=== PATIENT | female | born 1995 | race Caucasian/White ===

== ENCOUNTER 2022-01-03 17:46 | Inpatient (IN) | payer BC ==
[2022-01-03] MEDS ORDERED: Calcium Carbonate 500 MG Tab.Chew PO PRN (18:49)
[2022-01-03] MEDS ORDERED: Ondansetron 4 MG/2 ML SDV IVPUSH PRN (18:49)
[2022-01-03] MEDS ORDERED: Acetaminophen 325 MG Tab PO PRN (18:49)
[2022-01-03] MEDS ORDERED: Nalbuphine HCl 10 MG/ 1ML Amp IVPUSH PRN (18:49)
[2022-01-03] MEDS ORDERED: Lidocaine 1% 50 ML MDV INJECT PRN (18:49)
[2022-01-03] MEDS ORDERED: Oxytocin/Lactated Ringers 10 UNIT/1,000 ML BAG IV SCH ×2 (19:00)
[2022-01-03] MEDS ORDERED: Lactated Ringers 1,000 ML IV SCH (19:00)
[2022-01-03] MEDS ORDERED: Ampicillin 2 GM in Sodium Chloride 0.9% 100 ML IV ONE (20:30)
[2022-01-04] MEDS ORDERED: Ampicillin 1 GM in Sodium Chloride 0.9% 100 ML IV SCH (00:30)
[2022-01-04] MEDS ORDERED: Benzocaine/Menthol 20%-0.5% Spray 78 GM Cannister TOP PRN (01:21)
[2022-01-04] MEDS ORDERED: Witch Hazel Medicated Pads 40/Jar TOP PRN (01:21)
[2022-01-04] MEDS: Ibuprofen 600 MG Tab PO PRN ×2 (11:04→17:20)
[2022-01-04] MEDS: Docusate Sodium 100 MG Cap PO PRN (11:05)
[2022-01-04] MEDS: Acetaminophen 325 MG Tab PO PRN ×2 (11:05→17:21)
[2022-01-05] MEDS: Acetaminophen 325 MG Tab PO PRN ×4 (00:56→21:38)
[2022-01-05] MEDS: Ibuprofen 600 MG Tab PO PRN ×4 (00:57→21:36)
[2022-01-05] MEDS: Docusate Sodium 100 MG Cap PO PRN ×2 (08:18→21:36)
[2022-01-06] MEDS: Ibuprofen 600 MG Tab PO PRN ×2 (03:55→10:00)
[2022-01-06] MEDS: Acetaminophen 325 MG Tab PO PRN ×2 (03:55→08:40)
[2022-01-06] MEDS: Docusate Sodium 100 MG Cap PO PRN (08:40)
== END 2022-01-06 11:15 | disposition home or self-care (01) | DRG 560 ==
LOC: JD.OB 17:46 → JD.OBCHECK 17:46 → JD.MS 17:50 → JD.OBCHECK 18:49 → JD.OB 18:50 → OBSVTOIN 01-04 00:18 → JD.OB 01-04 00:19
PROVIDERS: ADMIT Obstetrics & Gynecology; ATTEND Obstetrics & Gynecology
PROC: 10E0XZZ Delivery of Products of Conception, External Approach (ICD-10-PCS; principal; 2022-01-04)
PROC: 10907ZC Drainage of Amniotic Fluid, Therapeutic from Products of Conception, Via Natural or Artificial Opening (ICD-10-PCS; 2022-01-04)
DX: O42.92 Full-term premature rupture of membranes, unspecified as to length of time between rupture and onset of labor (principal); Z37.0 Single live birth; O98.32 Other infections with a predominantly sexual mode of transmission complicating childbirth; A60.09 Herpesviral infection of other urogenital tract; O99.824 Streptococcus B carrier state complicating childbirth; Z3A.40 40 weeks gestation of pregnancy
CPT/HCPCS: 36415; 59025; 59409; 84112; 85027; 86592; 86850; 86900; 86901; A9270-GY; J0290; J2300; J2405; J2590; J7120

== ENCOUNTER 2023-09-07 13:02 | Inpatient (IN) | payer BC ==
[2023-09-07] MEDS ORDERED: Lidocaine 1% 50 ML MDV INJECT PRN (13:21)
[2023-09-07] MEDS ORDERED: Nalbuphine 10 MG/ML Syringe IVPUSH PRN (13:21)
[2023-09-07] MEDS ORDERED: Sodium Chloride 0.9% 10 ML Syringe FLUSH PRN (13:21)
[2023-09-07] MEDS ORDERED: Lactated Ringers 1,000 ML IV SCH (13:30)
[2023-09-07] MEDS: Oxytocin/Lactated Ringers 30 UNIT/500 ML BAG IV SCH (14:14)
[2023-09-07] MEDS ORDERED: Acetaminophen 325 MG Tab PO PRN (15:22)
[2023-09-07] MEDS: Witch Hazel Medicated Pads 40/Jar TOP PRN (15:52)
[2023-09-07] MEDS: Ibuprofen 600 MG Tab PO PRN (15:52)
[2023-09-07] MEDS: Benzocaine/Menthol 20%-0.5% Spray 78 GM Cannister TOP PRN (15:52)
[2023-09-07 17:28] LABS: BASOPHILS PERCENT AUTO 0.1 % (0.0-1.0); EOSINOPHILS PERCENT AUTO 0.1 % (0.0-6.0); HEMATOCRIT 36.5 % (37.0-47.0); HEMOGLOBIN 12.4 gm/dl (12.0-16.0); IMMATURE GRAN ABSOLUTE AUTO 0.09 K/mm3 (0.00-0.05); IMMATURE GRAN PERCENT AUTO 0.5 % (0.0-0.4); LYMPHOCYTES PERCENT AUTO 11.7 % (24.0-44.0); MEAN CORPUSCULAR HEMOGLOBIN 28.5 pg (28.0-32.0); MEAN CORPUSCULAR VOLUME 83.9 fl (83.0-99.0); MEAN PLATELET VOLUME 9.1 fl (9.4-12.3); MONOCYTES ABSOLUTE AUTO 1.1 K/mm3 (0.0-0.8); MONOCYTES PERCENT AUTO 6.5 % (0.0-8.0); NEUTROPHILS ABSOLUTE AUTO 13.8 K/mm3 (1.8-7.7); NEUTROPHILS PERCENT AUTO 81.1 % (41.0-71.0); PLATELET COUNT,PLT 337 K/mm3 (150-400); RED BLOOD CELL COUNT 4.35 M/mm3 (4.10-5.30); WHITE BLOOD CELL COUNT,WBC 17.01 K/mm3 (3.9-11.3)
[2023-09-07] MEDS ORDERED: Sodium Chloride 0.9% 10 ML Syringe FLUSH SCH (21:00)
[2023-09-07] MEDS: Docusate Sodium 100 MG Cap PO PRN (21:23)
[2023-09-09] MEDS: Measles, Mumps & Rubella Vaccine 0.5 ML SDV SUBCUT ONE (08:58)
== END 2023-09-09 13:50 | disposition home or self-care (01) | DRG 560 ==
LOC: JD.OBCHECK 13:02 → JD.OB 13:21 → JD.OBCHECK 13:26 → OBSVTOIN 13:34 → JD.OB 13:35
PROVIDERS: ADMIT Obstetrics & Gynecology; ATTEND Obstetrics & Gynecology
PROC: 10E0XZZ Delivery of Products of Conception, External Approach (ICD-10-PCS; principal; 2023-09-07)
PROC: 3E0234Z Introduction of Serum, Toxoid and Vaccine into Muscle, Percutaneous Approach (ICD-10-PCS; 2023-09-07)
DX: O99.824 Streptococcus B carrier state complicating childbirth (principal); Z37.0 Single live birth; Z3A.38 38 weeks gestation of pregnancy; Z98.890 Other specified postprocedural states; Z28.39 Other underimmunization status; Z23 Encounter for immunization
CPT/HCPCS: 36415; 59025; 59409; 85025; 86592; 90471; 90707; A9270-GY; J7999

== ENCOUNTER 2025-01-11 22:03 | Inpatient (IN) | payer BC ==
[2025-01-11] MEDS ORDERED: Ondansetron 4 MG/2 ML SDV IVPUSH PRN (22:57)
[2025-01-11] MEDS ORDERED: Nalbuphine 10 MG/1 ML Vial IVPUSH PRN (22:57)
[2025-01-11] MEDS ORDERED: Oxytocin/0.9 % Sodium Chloride 30 UNIT/500 ML BAG IV SCH (23:00)
[2025-01-11 23:14] LABS: BASOPHILS ABSOLUTE AUTO 0.0 K/mm3 (0.0-0.2); BASOPHILS PERCENT AUTO 0.3 % (0.0-1.0); EOSINOPHILS ABSOLUTE AUTO 0.0 K/mm3 (0.0-0.4); EOSINOPHILS PERCENT AUTO 0.3 % (0.0-6.0); IMMATURE GRAN ABSOLUTE AUTO 0.11 K/mm3 (0.00-0.05); IMMATURE GRAN PERCENT AUTO 0.8 % (0.0-0.4); LYMPHOCYTES ABSOLUTE AUTO 2.6 K/mm3 (1.0-4.8); LYMPHOCYTES PERCENT AUTO 19.8 % (24.0-44.0); MEAN PLATELET VOLUME 9.2 fl (9.4-12.3); MONOCYTES ABSOLUTE AUTO 0.8 K/mm3 (0.0-0.8); MONOCYTES PERCENT AUTO 5.9 % (0.0-8.0); NEUTROPHILS ABSOLUTE AUTO 9.7 K/mm3 (1.8-7.7); NEUTROPHILS PERCENT AUTO 72.9 % (41.0-71.0); NRBC ABSOLUTE 0.00 (0.00-0.02); NRBC PERCENT 0.0 % (0.0-0.2); PLATELET COUNT,PLT 331 K/mm3 (150-400); RED BLOOD CELL COUNT 4.31 M/mm3 (4.10-5.30); WHITE BLOOD CELL COUNT,WBC 13.31 K/mm3 (3.9-11.3)
[2025-01-11] MEDS: Lactated Ringers 1,000 ML IV SCH (23:29)
[2025-01-12] MEDS: Oxytocin/0.9 % Sodium Chloride 30 UNIT/500 ML BAG IV SCH (01:33)
[2025-01-12] MEDS: Witch Hazel Medicated Pads 40/Jar TOP PRN (02:11)
[2025-01-12] MEDS: Benzocaine/Menthol 20%-0.5% Spray 78 GM Cannister TOP PRN (02:11)
[2025-01-12] MEDS ORDERED: Sodium Chloride 0.9% 10 ML Syringe FLUSH SCH (09:00)
== END 2025-01-14 11:04 | disposition home or self-care (01) | DRG 560 ==
LOC: JD.OBCHECK 22:03 → JD.OB 22:07 → JD.OBCHECK 23:14 → OBSVTOIN 01-12 01:31 → JD.OB 01-12 01:32
PROVIDERS: ADMIT Obstetrics & Gynecology; ATTEND Obstetrics & Gynecology
PROC: 10E0XZZ Delivery of Products of Conception, External Approach (ICD-10-PCS; principal; 2025-01-12)
PROC: 10907ZC Drainage of Amniotic Fluid, Therapeutic from Products of Conception, Via Natural or Artificial Opening (ICD-10-PCS; 2025-01-12)
PROC: 4A1HXCZ Monitoring of Products of Conception, Cardiac Rate, External Approach (ICD-10-PCS; 2025-01-12)
DX: O48.0 Post-term pregnancy (principal); Z3A.40 40 weeks gestation of pregnancy; Z37.0 Single live birth; O99.824 Streptococcus B carrier state complicating childbirth
CPT/HCPCS: 36415; 59025; 59409; 85025; 86592; 86850; 86900; 86901; A9270-GY; J0290; J7120; J7999

== ENCOUNTER 2025-01-15 21:08 | Emergency (ER) | payer BC ==
[2025-01-15 22:32] LABS: BASOPHILS ABSOLUTE AUTO 0.0 K/mm3 (0.0-0.2); BASOPHILS PERCENT AUTO 0.2 % (0.0-1.0); EOSINOPHILS ABSOLUTE AUTO 0.0 K/mm3 (0.0-0.4); EOSINOPHILS PERCENT AUTO 0.1 % (0.0-6.0); IMMATURE GRAN ABSOLUTE AUTO 0.10 K/mm3 (0.00-0.05); IMMATURE GRAN PERCENT AUTO 0.8 % (0.0-0.4); LYMPHOCYTES ABSOLUTE AUTO 0.8 K/mm3 (1.0-4.8); LYMPHOCYTES PERCENT AUTO 5.8 % (24.0-44.0); MEAN PLATELET VOLUME 8.7 fl (9.4-12.3); MONOCYTES ABSOLUTE AUTO 0.6 K/mm3 (0.0-0.8); MONOCYTES PERCENT AUTO 4.5 % (0.0-8.0); NEUTROPHILS ABSOLUTE AUTO 11.6 K/mm3 (1.8-7.7); NEUTROPHILS PERCENT AUTO 88.6 % (41.0-71.0); NRBC ABSOLUTE 0.00 (0.00-0.02); NRBC PERCENT 0.0 % (0.0-0.2); PLATELET COUNT,PLT 339 K/mm3 (150-400); RED BLOOD CELL COUNT 4.38 M/mm3 (4.10-5.30); WHITE BLOOD CELL COUNT,WBC 13.10 K/mm3 (3.9-11.3)
[2025-01-15 23:05] LABS: A/G RATIO 0.7 (1-2); ALANINE AMINOTRANSFERASE,ALT 36.0 U/L (14-59); ASPARTATE AMNIOTRANSFERASE,AST 26.0 U/L (15-37); BILIRUBIN TOTAL 0.3 mg/dL (0.2-1.0); BLOOD UREA NITROGEN,BUN 6.0 mg/dL (7-18); CARBON DIOXIDE,CO2 22.0 mEq/L (21-32); CHLORIDE,CL 105.0 mEq/L (98-107); CREATININE 0.6 mg/dL (0.55-1.02); EST CRCL DRUG DOSING (CG) 128.35 mL/min; ESTIMATED GFR 124.0 mL/min (>60); GLUCOSE RANDOM 113.0 mg/dL (70-99); POTASSIUM,K 3.3 mEq/L (3.5-5.1); PROTEIN TOTAL,TP 6.5 g/dl (6.4-8.2); SODIUM,NA 138.0 mEq/L (136-145)
[2025-01-15 23:56] LABS: APPEARANCE,URINE CLEAR (Clear); GLUCOSE,URINE NEGATIVE (Negative); OCCULT BLOOD,URINE TRACE-LYSED (Negative)
[2025-01-16 00:27] LABS: EPITHELIAL CELLS,URINE 0-5 /hpf (0-5)
== END 2025-01-16 00:52 | disposition home or self-care (01) ==
LOC: JD.ED 21:08
DX: B34.9 Viral infection, unspecified (principal); K21.9 Gastro-esophageal reflux disease without esophagitis; Z86.16 Personal history of COVID-19
CPT/HCPCS: 36415; 71046; 71046-26; 80053; 81001; 85025; 87428-QW; 99283; 99284